=== PATIENT | male | born 1955 | race Two or more races ===

== ENCOUNTER 2023-04-21 11:34 | Emergency (ER) | payer OTHER ==
[~2023-04-21] VITALS: Ht 182.9 cm; Wt 81.8 kg
[2023-04-21 12:57] LABS: Basophils # (auto) 0 10 ^3/uL (0-0.2); Basophils % (auto) 0.5 % (0.0-2.0); Eosinophils # (auto) 0 10 ^3/uL (0-0.8); Eosinophils % (auto) 0.6 % (0.0-7.0); Hematocrit 39.6 % (41.0-53.0); Hemoglobin 12.7 g/dL (13.5-17.5); Lymphocytes % (auto) 22.4 % (10.0-50.0); Mean Corpuscular Hemoglobin 29.3 pg (28.0-32.0); Mean Corpuscular Volume 91.5 fL (80.0-100.0); Monocytes # (auto) 0.2 10 ^3/uL (0-1.3); Monocytes % (auto) 5.4 % (0.0-12.0); Neutrophils # (auto) 3.3 10 ^3/uL (1.6-8.6); Neutrophils % (auto) 71.1 % (37.0-80.0); Nucleated Red Blood Cells % 0.1 %; Red Blood Cells 4.33 10^6/uL (4.5-5.90); Red Cell Distribution Width 15.3 % (11.8-14.3); White Blood Cell 4.6 10^3/uL (4.4-10.8)
[2023-04-21 13:05] LABS: INR 1.07 (0.9-1.15); Partial Thromboplastin Time 28.5 SEC (24.5-34.5); Prothrombin Time 11.2 sec (9.3-11.8)
[2023-04-21 13:15] LABS: Albumin 3.9 g/dL (3.2-4.8); Alkaline Phosphatase 72 U/L (46-116); Anion Gap 11 (5-15); Aspartate Aminotransferase 10 U/L (13-40); BUN/Creatinine Ratio 20.3 (10.0-20.0); Bilirubin, Total 0.7 mg/dL (0.2-1.0); Blood Urea Nitrogen 12 mg/dL (9-23); Calcium 8.5 mg/dL (8.7-10.4); Carbon Dioxide 22 mmol/L (20-30); Chloride 108 mmol/L (98-107); Glucose 164 mg/dL (74-106); Lipase 29 U/L (12-53); Magnesium 1.3 mg/dL (1.6-2.6); Potassium 3.6 mmol/L (3.5-5.1); Sodium 141 mmol/L (136-145); Total Protein 6.3 g/dL (5.7-8.2)
[2023-04-21 13:17] LABS: Alanine Aminotransferase < 9 U/L (7-40)
[2023-04-21 13:18] LABS: COVID19 ANTIGEN SOFIA FIA NEGATIVE (NEGATIVE)
[2023-04-21 13:22] LABS: Lactic Acid w/Reflex 4.3 mmol/L (0.4-2.0)
[2023-04-21] MEDS ORDERED: cefTRIAXone 1GM/50ML D5W 50 ML IV ONE (13:30)
[2023-04-21] MEDS ORDERED: SODIUM CHLORIDE 0.9% 1,000 ML IV ONE ×2 (13:30→20:00)
[2023-04-21 13:43] VITALS: PULSE 88; RESP 16; O2SAT 96
[2023-04-21 14:15] LABS: Urine Bacteria FEW /hpf (None Seen); Urine Blood Negative /uL (Negative); Urine Clarity Clear (Clear); Urine Color Colorless (Yellow); Urine Hyaline Cast FEW /lpf (0 - 2); Urine Protein, UAD Negative (Negative); Urine Specific Gravity 1.019 (1.001-1.035); Urine WBC 21 /hpf (0 - 3)
[2023-04-21] MEDS ORDERED: MAGNESIUM SULFATE 1GM/100ML 100 ML IV ONE (14:30)
[2023-04-21] MEDS ORDERED: LABETALOL HCL 5 MG/ML 4ML SYRINGE IV ONE (17:15)
[2023-04-21 19:44] VITALS: PULSE 95; RESP 16; O2SAT 96
[2023-04-21] MEDS ORDERED: ACETAMINOPHEN 650 MG RECT SUPP PR ONE (20:00)
[2023-04-21 22:41] VITALS: BP 167/95; PULSE 98; RESP 19; TEMP 98.4; O2SAT 94
== END 2023-04-21 22:58 | disposition short-term general hospital (02) ==
LOC: ER 11:34 → EDBD 11:34 → ER 22:56
DX: G93.41 Metabolic encephalopathy (principal); E83.42 Hypomagnesemia; N39.0 Urinary tract infection, site not specified; R41.82 Altered mental status, unspecified; R41.4 Neurologic neglect syndrome; R74.02 Elevation of levels of lactic acid dehydrogenase [LDH]; R50.9 Fever, unspecified; E11.9 Type 2 diabetes mellitus without complications; E78.5 Hyperlipidemia, unspecified; Z86.2 Personal history of diseases of the blood and blood-forming organs and certain disorders involving the immune mechanism; Z98.890 Other specified postprocedural states; Z20.822 Contact with and (suspected) exposure to COVID-19
CPT/HCPCS: 36415; 51702; 70450; 70551; 71045; 80053; 81001; 82140; 83605; 83690; 83735; 84484; 85025; 85610; 85730; 86850; 86900; 86901; 87040; 87426; 93005; 96361; 96365; 96367; 96375; 99285; J0696; J3490; J7030; 87077; 87186

== ENCOUNTER 2024-11-16 19:56 | Emergency (ER) | payer OTHER ==
[~2024-11-16] VITALS: Ht 182.9 cm; Wt 77.3 kg
[2024-11-16 21:07] LABS: Hematocrit 51.5 % (41.0-53.0); Hemoglobin 17.2 g/dL (13.5-17.5); Mean Corpuscular Hemoglobin 32.0 pg (28.0-32.0); Mean Corpuscular Volume 95.7 fL (80.0-100.0); Nucleated Red Blood Cells % 0.1 %
--- NOTE | 2024-11-16 21:08 | ECG ---
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
[2024-11-16 21:24] LABS: Albumin 4.5 g/dL (3.2-4.8); Alkaline Phosphatase 77 U/L (46-116); Anion Gap 15 (5-15); BUN/Creatinine Ratio 26.7 (10.0-20.0); Bilirubin, Total 0.4 mg/dL (0.2-1.0); Blood Urea Nitrogen 23 mg/dL (9-23); Calcium 9.6 mg/dL (8.7-10.4); Carbon Dioxide 22 mmol/L (20-31); Chloride 105 mmol/L (98-107); Lipase 32 U/L (12-53); Potassium 4.4 mmol/L (3.5-5.1); Sodium 142 mmol/L (136-145); Total Protein 7.2 g/dL (5.7-8.2)
[2024-11-16 21:32] LABS: Alanine Aminotransferase 9 U/L (7-40); Glucose 149 mg/dL (74-106)
--- NOTE | 2024-11-16 23:00 | ED.PDOC ---
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 History was initially taken from the medics who got the history from the on scene. She states that throughout the day she has been retching, however, has not actually vomited. Patient is minimally verbal, however, tells me that he has pain along the mid abdomen and feels like he needs to vomit. Denies any chest pain, shortness of breath. No urinary symptoms. No diarrhea. No fevers. Additional history was taken from the , normal, who arrived to the emergency department shortly afterwards. She states that the patient is minimally verbal at baseline so can not express what has been happening. She states that he had bariatric surgery decades ago, has had no other abdominal surgeries. Over the past week has had decreased appetite, reporting intermittent abdominal pain and nausea. She states that before this he would eat regular food. However, whenever the or the ward service supervisor have been trying to feed him over the past week he states that he does not want to eat. He has only been wanting to drink liquids, soda. Has been repeatedly reporting nausea and has had retching, however, has not vomited during the week. feels like his abdomen is more swollen than what it typically is. She states that although earlier in the week he was drinking liquids with no issues today when they tried to give him something to drink he appeared as if he was having difficulty swallowing. Chief Complaint: Nausea/Vomiting Time Seen by MD: 19:58 Primary Care Provider: DELVIS Allergies: Coded Allergies: NO KNOWN ALLERGIES (Unverified , 04/21/23) Information Source: Patient, Relative, Emergency Med Personnel Mode of Arrival: EMS Severity: Moderate Timing: Hours Duration: Since onset Past Medical History PAST MEDICAL HISTORY: CHF, DM, Seizures Surgical History (Other): Prior bariatric surgery Family History Family History: Reviewed,noncontributory to illness Social History Drugs: Denies Drug Use Lives In: Home Constitutional: denies: chills, diaphoresis, fatigue, fever, malaise, sweats, weakness, others EENTM: denies: blurred vision, double vision, ear bleeding, ear discharge, ear drainage, ear pain, ear ringing, eye pain, eye redness, hearing loss, mouth pain, mouth swelling, nasal discharge, nose bleeding, nose congestion, nose pain, photophobia, tearing, throat pain, throat swelling, voice changes, others Respiratory: denies: cough, hemoptysis, orthopnea, SOB at rest, shortness of breath, SOB with excertion, stridor, wheezing, others Cardiovascular: denies: chest pain, dizzy spells, diaphoresis, Dyspnea on exertion, edema, irregular heart beat, left arm pain, lightheadedness, palpitations, PND, syncope, others Gastrointestinal: reports: abdominal pain, nausea, poor appetite Genitourinary: denies: burning, dysuria, flank pain, frequency, hematuria, incontinence, penile discharge, penile sore, pain, testicle pain, testicle swelling, urgency, others Neurological: denies: dizziness, fainting, headache, left sided numbness, left sided weakness, numbness, paresthesia, pre-existing deficit, right sided numbnes s, right sided weakness, seizure, speech problems, tingling, tremors, weakness, others Musculoskeletal: denies: back pain, gout, joint pain, joint swelling, muscle pain, muscle stiffness, neck pain, others Integumetry: denies: bruises, change in color, change in hair/nails, dryness, laceration, lesions, lumps, rash, wounds, others Allergic/Immunocompromised: denies: Difficulty Healing, Frequent Infections, Hives, Itching, others Hematologic/Lymphatic: denies: anemia, blood clots, easy bleeding, easy bruising, swollen glands, others Endocrine: denies: excessive hunger, excessive sweating, excessive thirst, excessive urination, flushing, intolerance to cold, intolerance to heat, unexplained weight gain, unexplained weight loss, others Physical Exam General Appearance: Mild Distress, Other (Chronically ill-appearing) HEENT: NOT DONE Neck: NOT DONE Respiratory: Lungs Clear, No Accessory Muscle Use, No Respiratory Distress, Normal Breath Sounds Cardiovascular: Normal Peripheral Pulses, Regular Rate/Rhythm, Other (Bilateral lower extremity edema) Breast Exam: Deferred Gastrointestinal: Epigastric, No Pulsatile Mass, Normal Bowel Sounds, Other (Prior abdominal surgical incision noted) Genitalia: Deferred Pelvic: Deferred Rectal: Deferred Extremities: Leg edema Neurologic: Motor Weakness (Baseline left-sided weakness and bed-bound) Cerebellar Function: NOT DONE Reflexes: NOT DONE Skin: Normal Color Lymphatic: NOT DONE Was a procedure done? Was a procedure done?: No EKG EKG : Pulse Rate (adult): 88 [place]: Normal Cardiac Rhythm: NSR Block: RBBB Hypertrophy: None ST: Old Comments Prolonged QTC (511) Differential Dx Considerations may include: Gastritis vs peptic ulcer disease vs reflux vs gastroparesis vs small-bowel obstruction vs pancreatitis vs of esophageal dysmotility X-Ray, Labs, Meds, VS Vital Signs Date Time Temp Pulse Resp B/P (MAP) Pulse Ox O2 Delivery O2 Flow Rate FiO2 11/16/24 23:53 94 18 143/64 11/16/24 23:43 98.2 94 18 143/64 (90) 98 98.2 11/16/24 23:00 88 11/16/24 20:55 88 11/16/24 20:24 97.8 89 14 152/82 95 97.8 Lab Test 11/16/24 20:52 Range/Units White Blood Count 8.3 4.4-10.8 10^3/uL Red Blood Count 5.38 4.5-5.90 10^6/uL Hemoglobin 17.2 13.5-17.5 g/dL Hematocrit 51.5 41.0-53.0 % Mean Corpuscular Volume 95.7 80.0-100.0 fL Mean Corpuscular Hemoglobin 32.0 28.0-32.0 pg Mean Corpuscular Hemoglobin Concent 33.4 32.0-36.0 g/dL Red Cell Distribution Width 15.3 H 11.8-14.3 % Platelet Count 191 140-450 10^3/uL Mean Platelet Volume 9.6 6.9-10.8 fL Neutrophils (%) (Auto) 80.9 H 37.0-80.0 % Lymphocytes (%) (Auto) 14.5 10.0-50.0 % Monocytes (%) (Auto) 4.2 0.0-12.0 % Eosinophils (%) (Auto) 0.1 0.0-7.0 % Basophils (%) (Auto) 0.3 0.0-2.0 % Neutrophils # (Auto) 6.7 1.6-8.6 10 ^3/uL Lymphocytes # (Auto) 1.2 0.4-5.4 10 ^3/uL Monocytes # (Auto) 0.3 0-1.3 10 ^3/uL Eosinophils # (Auto) 0 0-0.8 10 ^3/uL Basophils # (Auto) 0 0-0.2 10 ^3/uL Nucleated Red Blood Cells 0.1 % Sodium Level 142 136-145 mmol/L Potassium Level 4.4 3.5-5.1 mmol/L Chloride Level 105 98-107 mmol/L Carbon Dioxide Level 22 20-31 mmol/L Anion Gap 15 5-15 Blood Urea Nitrogen 23 9-23 mg/dL Creatinine 0.86 0.700-1.30 mg/dL Glomerular Filtration Rate Calc 94 >90 mL/min BUN/Creatinine Ratio 26.7 H 10.0-20.0 Serum Glucose 149 H 74-106 mg/dL Calcium Level 9.6 8.7-10.4 mg/dL Total Bilirubin 0.4 0.2-1.0 mg/dL Aspartate Amino Transferase (AST) 21 13-40 U/L Alanine Aminotransferase (ALT) 9 7-40 U/L Alkaline Phosphatase 77 46-116 U/L Total Protein 7.2 5.7-8.2 g/dL Albumin 4.5 3.2-4.8 g/dL Lipase 32 12-53 U/L Current Medications Medications (Trade) Dose Ordered Sig/Halima Route Start Time Stop Time Status Last Admin Morphine Sulfate 4 mg ONCE ONCE IV 11/16/24 20:45 11/16/24 20:47 DC 11/16/24 23:53 Ondansetron HCl (Zofran) 4 mg ONCE ONCE IV 11/16/24 20:45 11/16/24 20:47 DC 11/16/24 23:54 Famotidine (Pepcid Injection) 20 mg ONCE ONCE IV 11/16/24 20:45 11/16/24 20:47 DC 11/16/24 23:54 Sodium Chloride 1,000 ml @ 1,000 mls/hr Q1H ONCE IV 11/16/24 20:45 11/16/24 21:44 DC 11/16/24 23:54 Time of 1ST Reevaluation: 01:34 (Patient reporting improvement of abdominal discomfort, however, still reporting nausea) Reevaluation 1ST: Improved Time of 2ND Reevaluation: 02:39 (Spoke to [facility], Dr. Toscano. Reviewed the case with him. Given that patient is stable they will transfer him to a [facility] [place] facility for further workup. Authorization #[id number] ) Patient Education/Counseling: Diagnosis, Treatment Family Education/Counseling: Diagnosis, Treatment SEPSIS Sepsis Screen Date sepsis recognized/suspect: Nov 16, 2024 Time Sepsis recognized/suspect: 2023 Recent Procedure: No On Antibiotic Therapy: No Respiratory Rate >20: No Heart Rate >90: No Temp<36 C (96.8 F) or >38.3 C: No SBP <90 or MAP <65 mmHG: No New Acute Mental Status Change: No Is the patient on CPAP, BIPAP,: No Physician Orders Urinalysis (11/16/24 20:42) Ct Ab Pel With Iv Con Only (11/16/24 20:43) Vital Signs Date Time Temp Pulse Resp B/P (MAP) Pulse Ox O2 Delivery O2 Flow Rate FiO2 11/16/24 23:53 94 18 143/64 11/16/24 23:43 98.2 94 18 143/64 (90) 98 98.2 11/16/24 23:00 88 11/16/24 20:55 88 11/16/24 20:24 97.8 89 14 152/82 95 97.8 Laboratory Tests Test 11/16/24 20:52 White Blood Count 8.3 10^3/uL (4.4-10.8) Medications Medications Dose Ordered Sig/Halima Route Start Time Stop Time Status Last Admin Dose Admin Famotidine 20 mg ONCE ONCE IV 11/16/24 20:45 11/16/24 20:47 DC 11/16/24 23:54 Morphine Sulfate 4 mg ONCE ONCE IV 11/16/24 20:45 11/16/24 20:47 DC 11/16/24 23:53 Ondansetron HCl 4 mg ONCE ONCE IV 11/16/24 20:45 11/16/24 20:47 DC 11/16/24 23:54 Sodium Chloride 1,000 ml @ 1,000 mls/hr Q1H ONCE IV 11/16/24 20:45 11/16/24 21:44 DC 11/16/24 23:54 Departure 1 Departure Time of Disposition: 01:37 (69-year-old male who is mostly bed-bound from prior neurologic issues, history of diabetes, CHF and seizure disorder brought in by medics for 1 week of poor appetite, abdominal pain, nausea, perceived difficulty swallowing. Patient has had prior bariatric surgery. Given the mid abdominal pain with nausea with prior abdominal surgery could be concerning for small bowel obstruction. Given mid abdominal discomfort consider possible pancreatitis, however, lipase within normal limits. Given mid abdominal discomfort consider possible gastritis vs peptic ulcer disease vs reflux. Because the patient was initially having difficulty eating solids and now proceed to have difficulty with liquids over the past day could be concerning fo r esophageal dysmotility. Despite having poor oral intake over the past week his labs show no evidence of acute electrolyte abnormalities or acute kidney insufficiency. Patient has Sheridan catheter dependent, no lower abdominal discomfort, no fever, no critical leukocytosis here, not concerning for urinary tract infection at this time. CT of the abdomen and pelvis was performed which shows no evidence of small-bowel obstruction, however, does show copious stool throughout. Patient was treated with 1 L normal saline IV fluid bolus, given IV Pepcid, IV Zofran and IV morphine with some improvement of discomfort. Is tolerating ice water here. Because the patient is having difficulty tolerating oral intake will require admission for further workup and management. Patient is a [facility] patient. Discussed the case with [facility], Dr. Toscano. Patient will be transferred to a [facility] facility given that he is currently stable. Authorization #[id number]) Impression: Primary Impression: Abdominal pain Additional Impressions: Nausea Dysphagia Disposition: ADMITTED INPATIENT Admit to: Med Surg Condition: Stable Critical Care Note Critical Care Time?: No Stability Stability form required: No Stable for transfer: To designated facility Comments Being transferred to [facility] Facility SYLVIA GOLDMAN MD Nov 16, 2024 23:00
[2024-11-16] MEDS: MORPHINE SULFATE 4 MG/ML SYR/VIAL IV ONE (23:53)
[2024-11-16] MEDS: FAMOTIDINE (10MG/ML) 2ML VL IV ONE (23:54)
[2024-11-16] MEDS: SODIUM CHLORIDE 0.9% 1,000 ML IV ONE (23:54)
[2024-11-16] MEDS: ONDANSETRON HCL 4 MG/2 ML VIAL IV ONE (23:54)
[2024-11-17] MEDS: IOHEXOL 300 MG/ML 100ML BOTTLE IJ ONE (00:59)
--- NOTE | 2024-11-17 02:18 | DVH ---
Exam: CT CT AB PEL WITH IV CON ONLY History: mid abdominal pain, prior ex-lap, eval for SBO COMPARISON: None Technique: Multidetector spiral CT of the abdomen and pelvis was performed from lung bases to pubic s ymphysis. Intravenous contrast was administered during this examination. Portal venous imaging was o btained. Axial, coronal and sagittal multiplanar reformats were performed by the technologist on a [employer] workstation. Radiation Dose : 1. Abdomen/Pelvis: CTDIvol 18 mGy, DLP 1154 mGy*cm. Findings: Lung Bases: No acute findings. Normal heart size with prior CABG. Exam is limited by streak and beam hardening artifact from arms down positioning. Liver: Diffuse hypoenhancement relative to the spleen. Gallbladder and Biliary Tree: Distended gallbladder with small layering calcified stones. No evidenc e of wall thickening or ductal dilation. Pancreas: Diffuse atrophy. Spleen: Unremarkable Adrenal Glands: Unremarkable Kidneys: No acute findings. Left inferior renal cystic lesion without suspicious features. Bladder: Unremarkable. Pelvic Organs: Unremarkable Bowel: No evidence of wall thickening or obstruction. Moderate to large pancolonic stool burden. Normal appendix. Vasculature: Diffuse atherosclerosis. Lymphadenopathy: No evident adenopathy. Peritoneum: No ascites, free air, or fluid collection. Abdominal Wall: Mild anasarca. Small fat containing umbilical hernia. Musculoskeletal: No acute findings. Osteopenia. Bilateral inferior rib deformities. Degenerative frey ges of the spine and pelvis. Partially imaged sternotomy wires. IMPRESSION: 1. No bowel obstruction or other acute abdominopelvic abnormality. 2. Moderate to large pancolonic stool burden. 3. Cholelithiasis and gallbladder distention without evidence of wall thickening or ductal dilation. 4. Additional chronic and incidental findings above. Radiation optimization: All CT scans at this facility use at least one of these dose optimization tamy hniques: automated exposure control mA and/or kV adjustment per patient size (includes targeted exam s where dose is matched to clinical indication) or iterative reconstruction.
[2024-11-17 03:20] VITALS: O2SAT 96
[2024-11-17 05:00] VITALS: BP 113/68; PULSE 86; RESP 16; TEMP 98.9; O2SAT 95
== END 2024-11-17 05:10 | disposition short-term general hospital (02) ==
LOC: EDBD 19:56 → ER 19:56
DX: R10.9 Unspecified abdominal pain (principal); R13.10 Dysphagia, unspecified; R11.0 Nausea; E11.9 Type 2 diabetes mellitus without complications; I25.2 Old myocardial infarction; I50.9 Heart failure, unspecified; K80.20 Calculus of gallbladder without cholecystitis without obstruction; Z98.84 Bariatric surgery status
CPT/HCPCS: 36415; 74177; 80053; 83690; 85025; 93005; 96361; 96374; 96375; 99285; J2270; J2405; J3490; J7030; Q9967